=== PATIENT | female | born 1940 | race Hispanic/Latino ===

== ENCOUNTER → 2018-11-20 | Outpatient (CLI) | payer MEDICARE ==
--- NOTE | 2018-11-20 12:40 | Diagnostic Imaging Report ---
Exam: KUB Clinical history: Renal stone Findings: A right internal ureteral stent is visualized. There is no evidence of radiopaque stones along the course of the bilateral renal collecting systems. A 1.1 cm calcific density structures seen overlying the right upper quadrant which may represent cholelithiasis. There is nonobstructive bowel gas pattern with retained feces throughout the colon. The regional osseous structures are unremarkable. Impression: 1. Right internal ureteral stent in the expected location. No radiographic evidence of nephrolithiasis. Signed by: Dr. Fernando Ramirez MD on 11/20/2018 12:37 PM
== END ==
LOC: RAD 09:58
PROVIDERS: ATTEND Urology
DX: N20.0 Calculus of kidney (principal)
CPT/HCPCS: 74018

== ENCOUNTER → 2018-12-10 | Day surgery (SDC) | payer MEDICARE, OTHER ==
[~2018-12-10] MED LIST: B&O 60MG R/S 60 MG SUPP PR ONE; CEFAZOLIN SOD 1 GM/NS 50ML 50 ML IV ONE; DEXAMETHASONE SOD PHOS INJ 4 MG/ML VIAL ONE; FENTANYL CITRATE/PF 100MCG/2 ML INJ ONE; IOPAMIDOL 300MG/ML 50ML INFUS..BTL IV ONE; LIDOCAINE HCL 2% LOCAL INJ 5 ML SDV VIAL INJ ONE; MIDAZOLAM HCL 2 MG/2 ML VIAL ONE; ONDANSETRON HCL INJ 2MG/ML 2ML 2 MG/ML VIAL ONE; PROPOFOL IV EMULSION 10 MG/ML 20 ML VIAL ONE; SEVOFLURANE INHAL SOLN 250 ML PEN BTL ONE; TYLENOL # 31 EA
--- OUTSIDE RECORDS SUMMARY | 2018-12-10 09:18 | XMS REPORT ---
Author Author [facility] Organization [facility] Address Unknown Phone Unavailable Care Team Providers Care Tap Dancer Name Role Phone BRIAN LANZA Unavailable Unavailable Payers Payer Name Policy Type Policy Number Effective Date Expiration Date Problems This patient has no known problems. Allergies, Adverse Reactions, Alerts Allergy Name Allergy Type Status Severity Reaction(s) Onset Date Inactive Date Treating Clinician Comments No Known Allergies DA Active U 2011-10-09 00:00:00 Medications This patient has no known medications. Results Test Description Test Time Test Comments Text Results Atomic Results Result Comments [address] ([place]) 2018-11-20 12:32:00 [facility] [address] [place], [place] [address] Patient Name: KATHERINE JACKSON MR #: [id number] : 1940 Age/Sex: 78/F Req #: [id number] Adm Physician: Ordered by: BRIAN LANZA MD Report #: [id number] Location: [facility] Room/Bed: Procedure: [id number] DX/ABDOMEN-1VIEW (KUB) Exam Date: 11/20/18 Exam Time: 1015 REPORT STATUS: Signed Exam: KUB Clinical history: Renal stone Findings: A right internal ureteral stent is visualized. There is no evidence of radiopaque stones along the course of the bilateral renal collecting systems. A 1.1 cm calcific density structures seen overlying the right upper quadrant which may represent cholelithiasis. There is nonobstructive bowel gas pattern with retained feces throughout the colon. The regional osseous structures are unremarkable. Impression: 1. Right internal ureteral stent in the expected location. No radiographic evidence of nephrolithiasis. Signed by: Dr. Fernando Ramirez MD on 11/20/2018 12:37 PM Dictated By: ABIGAIL RAMIREZ MD 1237 Transcribed By: LOBO on 11/20/18 1237 COPY TO: BRIAN LANZA MD ABDOMEN 2018-10-07 14:52:00 RUN DATE: 10/07/18 [facility] PAGE 1 RUN TIME: 1452 Specimen Inquiry RUN USER: INTERFACE PATIENT: KATHERINE JACKSON LOC: [place] U #: [id number] AGE/SX: 78/F ROOM: [facility] RE10/02/18[facility] DR: Ellen Rodriguez MD : 38 BED: A DIS: STATUS: ADM IN TLOC: SPEC #: [id number] RECD: 10/06/18 STATUS: DEDRA RE #: [id number] ASIA: 10/06/18 [facility] DR: Ariel Garcia MD ENTERED: 10/06/18 SP TYPE: ABD OTHR DR: Livia Sullivan MD, Louis MD [place],Rogelio Marcus,Ariel Willams MD, MDORDERED: GROSS COPIES TO: Livia Sullivan MD [address] [facility] [place], [place] [id number] Nestor Rucker MD [address] [place] [address] Rogelio Lanza MD [address] [place] [address] Janett Marcus MD [address] [place] [address] Ariel Garcia MD [address] [place] [address] PROCEDURES: GROSS (10/07/18033) TISSUES: ABDOMINAL WALL, NOS - MASS CLINICAL HISTORY COLLECTION DATE: ABDOMINAL WALL MASS CONTINUED ON NEXT PAGE RUN DATE: 10/07/18 [facility] PAGE 2 RUN TIME: 1452 Specimen Inquiry RUN USER: INTERFACE SPEC #: [id number] PATIENT: MANUELKATHERINE #[id number] (Continued) FINAL DIAGNOSIS Abdominal wall mass, excision: 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 It is inked and serially sectioned to reveal guevara-yellow white, lobulated soft and necrotic cut surface. [employer]ing [employer] sections are submitted as (1A-1B). GROSS PERFORMED AT [facility] [address] [place] [address] [phone])[phone] MICROSCOPIC The sections demonstrate an adenocarcinoma composed of cribriforming glands with luminal necrosis. The tumor is present within adipose tissue and extends to inked margins. All of the stains, including any controls performed, stain appropriately. MICROSCOPIC PERFORMED AT [facility] [address] [place] [phone] PERFORM[address] SITE Diagnosis performed at: [facility] [address] [place] [address] CONTINUED ON NEXT PAGE RUN DATE: 10/07/18 [place] - Lab PAGE 3 RUN TIME: 1451 Specimen Inquiry RUN USER: INTERFACE SPEC #: [id number] PATIENT: KATHERINE JACKSON #[id number] (Continued) Signed SIGNATURE ON FILE Carlie Garcia MD 10/07/18 0622 END OF REPORT COMPREHENSIVE METABOLIC PANEL 2018-10-07 06:34:00 SODIUM (test code=NA) 140 mmol/L 136-145 POTASSIUM (test code=K) 3.7 mmol/L 3.5-5.1 CHLORIDE (test code=CL) 108.0 mmol/L 98-107 CARBON DIOXIDE (test code=CO2) 27.0 mmol/L 21-32 ANION GAP (test code=GAP) 8.7 10-20 GLUCOSE (test code=GLU) 97 mg/dL 74-106 BLOOD UREA NITROGEN (test code=BUN) 14 mg/dL 7-18 GLOMERULAR FILTRATION RATE (test code=GFR) > 60 mL/min >=60 Estimated GFR by using Modified MDRD formula.Chronic kidney disease is defined as either kidney damageor GFR <60 mL/min/1.73 m2 for >3 months. CREATININE (test code=CREAT) 0.60 mg/dL 0.55-1.02 Note change in reference range due to change in reagent. BUN/CREATININE RATIO (test code=BUN/CREA) 25.0 10-20 TOTAL PROTEIN (test code=PROT) 6.7 gram/dL 6.4-8.2 ALBUMIN (test code=ALB) 3.1 g/dL 3.4-5.0 GLOBULIN (test code=GLOB) 3.6 gram/dL 2.7-4.2 ALBUMIN/GLOBULIN RATIO (test code=A/G) 0.9 0.75-1.50 CALCIUM (test code=CA) 9.0 mg/dL 8.5-10.1 BILIRUBIN TOTAL (test code=BILT) 0.30 mg/dL 0.0-1.0 SGOT/AST (test code=AST) 10 IUnit/L 15-37 SGPT/ALT (test code=ALT) 11 IUnit/L 12-78 ALKALINE PHOSPHATASE TOTAL (test code=ALKP) 84 IUnit/L 45-117 Note change in reference range due to change in reagent. COMPREHENSIVE METABOLIC [id number] 06:29:00* Test Item Value Reference Range Comments SODIUM (test code=NA) 140 mmol/L 136-145 POTASSIUM (test code=K) 3.7 mmol/L 3.5-5.1 CHLORIDE (test code=CL) 108.0 mmol/L 98-107 CARBON DIOXIDE (test code=CO2) mmol/L 21-32 ANION GAP (test code=GAP) 10-20 GLUCOSE (test code=GLU) mg/dL 74-106 BLOOD UREA NITROGEN (test code=BUN) mg/dL 7-18 GLOMERULAR FILTRATION RATE (test code=GFR) mL/min >=60 CREATININE (test code=CREAT) mg/dL 0.55-1.02 BUN/CREATININE RATIO (test code=BUN/CREA) 10-20 TOTAL PROTEIN (test code=PROT) gram/dL 6.4-8.2 ALBUMIN (test code=ALB) g/dL 3.4-5.0 GLOBULIN (test code=GLOB) gram/dL 2.7-4.2 ALBUMIN/GLOBULIN RATIO (test code=A/G) 0.75-1.50 CALCIUM (test code=CA) mg/dL 8.5-10.1 BILIRUBIN TOTAL (test code=BILT) mg/dL 0.0-1.0 SGOT/AST (test code=AST) IUnit/L 15-37 SGPT/ALT (test code=ALT) IUnit/L 12-78 ALKALINE PHOSPHATASE TOTAL (test code=ALKP) IUnit/L 45-117 CBC W/AUTO [id number] 06:17:00* Test Item Value Reference Range Comments WHITE BLOOD CELL (test code=WBC) 10.1 K/mm3 4.5-12.5 RED BLOOD CELL (test code=RBC) 3.76 mill/mm3 3.7-5.2 HEMOGLOBIN (test code=HGB) 9.8 gram/dL 11.5-15.5 HEMATOCRIT (test code=HCT) 31.5 % 36.0-46.0 MEAN CELL VOLUME (test code=MCV) 83.8 fL 80-98 MEAN CELL HGB (test code=MCH) 26.1 picogram 27.0-33.0 MEAN CELL HGB CONCETRATION (test code=MCHC) 31.1 gram/dL 33.0-36.0 RED CELL DISTRIBUTION WIDTH (test code=RDW) 13.9 % 11.6-16.2 RED CELL DISTRIBUTION WIDTH SD (test code=RDW-SD) 42.5 fL 37.0-51.0 PLATELET COUNT (test code=PLT) 318 K/mm3 150-450 MEAN PLATELET VOLUME (test code=MPV) 9.5 fL 6.7-11.0 NEUTROPHIL % (test code=NT%) 74.0 % 39.0-69.0 IMMATURE GRANULOCYTE % (test code=IG%) 0.5 % 0.0-5.0 LYMPHOCYTE % (test code=LY%) 16.4 % 25.0-55.0 MONOCYTE % (test code=MO%) 7.7 % 0.0-10.0 EOSINOPHIL % (test code=EO%) 1.0 % 0.0-5.0 BASOPHIL % (test code=BA%) 0.4 % 0.0-1.0 NUCLEATED RBC % (test code=NRBC%) 0.0 % 0-0 NEUTROPHIL # (test code=NT#) 7.44 K/mm3 1.8-7.7 IMMATURE GRANULOCYTE # (test code=IG#) 0.05 x10 3/uL 0-0.03 LYMPHOCYTE # (test code=LY#) 1.65 K/mm3 1.0-5.0 MONOCYTE # (test code=MO#) 0.77 K/mm3 0-0.8 EOSINOPHIL # (test code=EO#) 0.10 K/mm3 0.0-0.5 BASOPHIL # (test code=BA#) 0.04 K/mm3 0.0-0.2 NUCLEATED RBC # (test code=NRBC#) 0.00 K/mm3 0.0-0.1 MANUAL DIFF REQUIRED (test code=MDIFF) NO COMPREHENSIVE METABOLIC [id number] 05:15:00* Test Item Value Reference Range Comments SODIUM (test code=NA) 141 mmol/L 136-145 POTASSIUM (test code=K) 4.1 mmol/L 3.5-5.1 CHLORIDE (test code=CL) 108.0 mmol/L 98-107 CARBON DIOXIDE (test code=CO2) 29.0 mmol/L 21-32 ANION GAP (test code=GAP) 8.1 10-20 GLUCOSE (test code=GLU) 96 mg/dL 74-106 BLOOD UREA NITROGEN (test code=BUN) 10 mg/dL 7-18 GLOMERULAR FILTRATION RATE (test code=GFR) > 60 mL/min >=60 Estimated GFR by using Modified MDRD formula.Chronic kidney disease is defined as either kidney damageor GFR <60 mL/min/1.73 m2 for >3 months. CREATININE (test code=CREAT) 0.50 mg/dL 0.55-1.02 Note change in reference range due to change in reagent. BUN/CREATININE RATIO (test code=BUN/CREA) 20.0 10-20 TOTAL PROTEIN (test code=PROT) 6.5 gram/dL 6.4-8.2 ALBUMIN (test code=ALB) 2.8 g/dL 3.4-5.0 GLOBULIN (test code=GLOB) 3.7 gram/dL 2.7-4.2 ALBUMIN/GLOBULIN RATIO (test code=A/G) 0.8 0.75-1.50 CALCIUM (test code=CA) 8.8 mg/dL 8.5-10.1 BILIRUBIN TOTAL (test code=BILT) 0.50 mg/dL 0.0-1.0 SGOT/AST (test code=AST) 20 IUnit/L 15-37 SGPT/ALT (test code=ALT) 9 IUnit/L 12-78 ALKALINE PHOSPHATASE TOTAL (test code=ALKP) 90 IUnit/L 45-117 Note change in reference range due to change in reagent. COMPREHENSIVE METABOLIC [id number] 05:00:00* Test Item Value Reference Range Comments SODIUM (test code=NA) 141 mmol/L 136-145 POTASSIUM (test code=K) 4.1 mmol/L 3.5-5.1 CHLORIDE (test code=CL) 108.0 mmol/L 98-107 CARBON DIOXIDE (test code=CO2) mmol/L 21-32 ANION GAP (test code=GAP) 10-20 GLUCOSE (test code=GLU) mg/dL 74-106 BLOOD UREA NITROGEN (test code=BUN) mg/dL 7-18 GLOMERULAR FILTRATION RATE (test code=GFR) mL/min >=60 CREATININE (test code=CREAT) mg/dL 0.55-1.02 BUN/CREATININE RATIO (test code=BUN/CREA) 10-20 TOTAL PROTEIN (test code=PROT) gram/dL 6.4-8.2 ALBUMIN (test code=ALB) g/dL 3.4-5.0 GLOBULIN (test code=GLOB) gram/dL 2.7-4.2 ALBUMIN/GLOBULIN RATIO (test code=A/G) 0.75-1.50 CALCIUM (test code=CA) mg/dL 8.5-10.1 BILIRUBIN TOTAL (test code=BILT) mg/dL 0.0-1.0 SGOT/AST (test code=AST) IUnit/L 15-37 SGPT/ALT (test code=ALT) IUnit/L 12-78 ALKALINE PHOSPHATASE TOTAL (test code=ALKP) IUnit/L 45-117 CBC W/AUTO [id number] 04:45:00* Test Item Value Reference Range Comments WHITE BLOOD CELL (test code=WBC) 7.1 K/mm3 4.5-12.5 RED BLOOD CELL (test code=RBC) 3.68 mill/mm3 3.7-5.2 HEMOGLOBIN (test code=HGB) 9.6 gram/dL 11.5-15.5 HEMATOCRIT (test code=HCT) 31.0 % 36.0-46.0 MEAN CELL VOLUME (test code=MCV) 84.2 fL 80-98 MEAN CELL HGB (test code=MCH) 26.1 picogram 27.0-33.0 MEAN CELL HGB CONCETRATION (test code=MCHC) 31.0 gram/dL 33.0-36.0 RED CELL DISTRIBUTION WIDTH (test code=RDW) 13.9 % 11.6-16.2 RED CELL DISTRIBUTION WIDTH SD (test code=RDW-SD) 42.9 fL 37.0-51.0 PLATELET COUNT (test code=PLT) 277 K/mm3 150-450 MEAN PLATELET VOLUME (test code=MPV) 9.1 fL 6.7-11.0 NEUTROPHIL % (test code=NT%) 65.6 % 39.0-69.0 IMMATURE GRANULOCYTE % (test code=IG%) 0.4 % 0.0-5.0 LYMPHOCYTE % (test code=LY%) 19.0 % 25.0-55.0 MONOCYTE % (test code=MO%) 10.1 % 0.0-10.0 EOSINOPHIL % (test code=EO%) 4.3 % 0.0-5.0 BASOPHIL % (test code=BA%) 0.6 % 0.0-1.0 NUCLEATED RBC % (test code=NRBC%) 0.0 % 0-0 NEUTROPHIL # (test code=NT#) 4.63 K/mm3 1.8-7.7 IMMATURE GRANULOCYTE # (test code=IG#) 0.03 x10 3/uL 0-0.03 LYMPHOCYTE # (test code=LY#) 1.34 K/mm3 1.0-5.0 MONOCYTE # (test code=MO#) 0.71 K/mm3 0-0.8 EOSINOPHIL # (test code=EO#) 0.30 K/mm3 0.0-0.5 BASOPHIL # (test code=BA#) 0.04 K/mm3 0.0-0.2 NUCLEATED RBC # (test code=NRBC#) 0.00 K/mm3 0.0-0.1 MANUAL DIFF REQUIRED (test code=MDIFF) NO - XR ABDOMEN AP 1 [id number] 08:32:00 FAX: Rogelio Bianchi MD [phone] [place]: B St: [facility] FAX: Ellen Rodriguez MD [phone] FAX: Janett Chen MD [phone] Name: KATHERINE JACKSON [facility] : 1940 Age/S: 78/F [address] Unit #: [id number] Loc: V.3025 [place] [address] Phys: Rogelio Lanza MD Acct: [id number] Dis Date: Status: ADM IN ONE #: [phone] Exam Date: 10/04/2018 0803 FAX #: [phone] Reason: EVALUATE FOR ENCRUSTATION ON THE STENT. EXAMS: CPT CODE: [id number] XR ABDOMEN AP 1 V 42571 HISTORY: Encru stations of the stent. COMPARISON: October 02, 2018. Castillo rgical clips and sutures in the left upper and right lower quadrant. Righ t double-J stent is barely visible on this exam. This stent is not clearl y visible on the previous exam. No encrustations noted along the stent. Phleboliths in the pelvis. Constipation is severe. No bowel obstruction. IMPRESSION: Right double-J stent is barely vi sible. No encrustations along the stent. No pathologic calcifications. Phleboliths. Severe constipation without bowel obstruction. at 0832 Reported and signed by: Alin Pope M.D. CC: Rogelio Lanza MD; Ellen Rodriguez MD; Janett Marcus MD Technologist: Benny Kim RT(R) Trnscrd Date/Time/By: 10/04/2018 (0832) : By: [email or web address] Orig Print D/T: S: 10/04/2018 (0835) PAGE 1 Signed Report COMPREHENSIVE METABOLIC [id number] 05:43:00* Test Item Value Reference Range Comments SODIUM (test code=NA) 141 mmol/L 136-145 POTASSIUM (test code=K) 4.0 mmol/L 3.5-5.1 CHLORIDE (test code=CL) 108.0 mmol/L 98-107 CARBON DIOXIDE (test code=CO2) 27.0 mmol/L 21-32 ANION GAP (test code=GAP) 10.0 10-20 GLUCOSE (test code=GLU) 103 mg/dL 74-106 BLOOD UREA NITROGEN (test code=BUN) 14 mg/dL 7-18 GLOMERULAR FILTRATION RATE (test code=GFR) > 60 mL/min >=60 Estimated GFR by using Modified MDRD formula.Chronic kidney disease is defined as either kidney damageor GFR <60 mL/min/1.73 m2 for >3 months. CREATININE (test code=CREAT) 0.50 mg/dL 0.55-1.02 Note change in reference range due to change in reagent. BUN/CREATININE RATIO (test code=BUN/CREA) 27.6 10-20 TOTAL PROTEIN (test code=PROT) 6.5 gram/dL 6.4-8.2 ALBUMIN (test code=ALB) 2.9 g/dL 3.4-5.0 GLOBULIN (test code=GLOB) 3.6 gram/dL 2.7-4.2 ALBUMIN/GLOBULIN RATIO (test code=A/G) 0.8 0.75-1.50 CALCIUM (test code=CA) 9.0 mg/dL 8.5-10.1 BILIRUBIN TOTAL (test code=BILT) 0.30 mg/dL 0.0-1.0 SGOT/AST (test code=AST) 17 IUnit/L 15-37 SGPT/ALT (test code=ALT) 10 IUnit/L 12-78 ALKALINE PHOSPHATASE TOTAL (test code=ALKP) 85 IUnit/L 45-117 Note change in reference range due to change in reagent. COMPREHENSIVE METABOLIC [id number] 05:29:00* Test Item Value Reference Range Comments SODIUM (test code=NA) 141 mmol/L 136-145 POTASSIUM (test code=K) 4.0 mmol/L 3.5-5.1 CHLORIDE (test code=CL) 108.0 mmol/L 98-107 CARBON DIOXIDE (test code=CO2) mmol/L 21-32 ANION GAP (test code=GAP) 10-20 GLUCOSE (test code=GLU) mg/dL 74-106 BLOOD UREA NITROGEN (test code=BUN) mg/dL 7-18 GLOMERULAR FILTRATION RATE (test code=GFR) mL/min >=60 CREATININE (test code=CREAT) mg/dL 0.55-1.02 BUN/CREATININE RATIO (test code=BUN/CREA) 10-20 TOTAL PROTEIN (test code=PROT) gram/dL 6.4-8.2 ALBUMIN (test code=ALB) g/dL 3.4-5.0 GLOBULIN (test code=GLOB) gram/dL 2.7-4.2 ALBUMIN/GLOBULIN RATIO (test code=A/G) 0.75-1.50 CALCIUM (test code=CA) mg/dL 8.5-10.1 BILIRUBIN TOTAL (test code=BILT) mg/dL 0.0-1.0 SGOT/AST (test code=AST) IUnit/L 15-37 SGPT/ALT (test code=ALT) IUnit/L 12-78 ALKALINE PHOSPHATASE TOTAL (test code=ALKP) IUnit/L 45-117 CBC W/AUTO [id number] 05:15:00* Test Item Value Reference Range Comments WHITE BLOOD CELL (test code=WBC) 7.2 K/mm3 4.5-12.5 RED BLOOD CELL (test code=RBC) 3.71 mill/mm3 3.7-5.2 HEMOGLOBIN (test code=HGB) 9.9 gram/dL 11.5-15.5 HEMATOCRIT (test code=HCT) 31.8 % 36.0-46.0 MEAN CELL VOLUME (test code=MCV) 85.7 fL 80-98 MEAN CELL HGB (test code=MCH) 26.7 picogram 27.0-33.0 MEAN CELL HGB CONCETRATION (test code=MCHC) 31.1 gram/dL 33.0-36.0 RED CELL DISTRIBUTION WIDTH (test code=RDW) 13.9 % 11.6-16.2 RED CELL DISTRIBUTION WIDTH SD (test code=RDW-SD) 43.0 fL 37.0-51.0 PLATELET COUNT (test code=PLT) 284 K/mm3 150-450 MEAN PLATELET VOLUME (test code=MPV) 9.4 fL 6.7-11.0 NEUTROPHIL % (test code=NT%) 65.3 % 39.0-69.0 IMMATURE GRANULOCYTE % (test code=IG%) 0.4 % 0.0-5.0 LYMPHOCYTE % (test code=LY%) 20.6 % 25.0-55.0 MONOCYTE % (test code=MO%) 8.3 % 0.0-10.0 EOSINOPHIL % (test code=EO%) 4.7 % 0.0-5.0 BASOPHIL % (test code=BA%) 0.7 % 0.0-1.0 NUCLEATED RBC % (test code=NRBC%) 0.0 % 0-0 NEUTROPHIL # (test code=NT#) 4.69 K/mm3 1.8-7.7 IMMATURE GRANULOCYTE # (test code=IG#) 0.03 x10 3/uL 0-0.03 LYMPHOCYTE # (test code=LY#) 1.48 K/mm3 1.0-5.0 MONOCYTE # (test code=MO#) 0.60 K/mm3 0-0.8 EOSINOPHIL # (test code=EO#) 0.34 K/mm3 0.0-0.5 BASOPHIL # (test code=BA#) 0.05 K/mm3 0.0-0.2 NUCLEATED RBC # (test code=NRBC#) 0.00 K/mm3 0.0-0.1 MANUAL DIFF REQUIRED (test code=MDIFF) NO - XR ABDOMEN AP 1 [id number] 13:08:00 FAX: Brian Bianchi MD [phone] [place]: St: [facility] FAX: Ellen Rodriguez MD [phone] FAX: Janett Chen MD [phone] Name: KATHERINE JACKSON [facility] : 1940 Age/S: 78/F [address] Unit #: [id number] Loc: V.30[address] [place] [address] Phys: Brian Lanza MD Acct: [id number] Dis Date: Status: ADM IN ONE #: [phone] Exam Date: 10/02/2018 1240 FAX #: [phone] Reason: POSSIBLE STENT DISLODGEMENT EXAMS: CPT CODE: [id number] XR ABDOMEN AP 1 V 28564 HISTORY: Possi ble stent dislodgment. COMPARISON: CT scan from previous day. Double-J stent seen previously is no longer visible on the right side. Surgical sutures in the right lower quadrant. No bowel obstruction. Constipation. IMPRESSION: The double-J stent seen on the CT scan within the right collecting system is no longer seen . No pathologic calcifications. Phleboliths. at 1308 Reported and s igned by: Alin Pope M.D. CC: Brian Lanza MD; Ellen Blas MD; Janett Marcus MD Technologist: AMANDO VITAL, RT(R); Alis Ramsay(R) Trnscrd Date/Time/By: 10/02/2018 (5452) : By: [email or web address] Orig Print D/T: S: 10/02/2018 (8529) PAGE 1 Signed Report FE W/TOTAL IRON BINDING CAP.2018-10-02 10:41:00* Test Item Value Reference Range Comments SERUM IRON (test code=IRON) 34 ug/dL 50-175 TOTAL IRON BINDING CAPACITY (test code=TIBC) 200 mcg/dL 250-450 IRON SATURATION (test code=FESAT) 17.00 % 13-45 VITAMIN [id number] 10:41:00* Test Item Value Reference Range Comments VITAMIN B12 (test code=VITB12) 183 pg/mL 193-986 FOLIC [id number] 10:41:00* Test Item Value Reference Range Comments FOLIC ACID (test code=FOL) 19.7 ng/mL 3.10-17.50 [id number] 10:41:00* Test Item Value Reference Range Comments FERRITIN (test code=MIRNA) 9 ng/mL 8-388 CBC W/AUTO [id number] 05:52:00* Test Item Value Reference Range Comments WHITE BLOOD CELL (test code=WBC) 6.4 K/mm3 4.5-12.5 RED BLOOD CELL (test code=RBC) 3.54 mill/mm3 3.7-5.2 HEMOGLOBIN (test code=HGB) 9.3 gram/dL 11.5-15.5 HEMATOCRIT (test code=HCT) 30.1 % 36.0-46.0 MEAN CELL VOLUME (test code=MCV) 85.0 fL 80-98 MEAN CELL HGB (test code=MCH) 26.3 picogram 27.0-33.0 MEAN CELL HGB CONCETRATION (test code=MCHC) 30.9 gram/dL 33.0-36.0 RED CELL DISTRIBUTION WIDTH (test code=RDW) 13.7 % 11.6-16.2 RED CELL DISTRIBUTION WIDTH SD (test code=RDW-SD) 42.5 fL 37.0-51.0 PLATELET COUNT (test code=PLT) 291 K/mm3 150-450 MEAN PLATELET VOLUME (test code=MPV) 9.3 fL 6.7-11.0 NEUTROPHIL % (test code=NT%) 66.4 % 39.0-69.0 IMMATURE GRANULOCYTE % (test code=IG%) 0.3 % 0.0-5.0 LYMPHOCYTE % (test code=LY%) 18.9 % 25.0-55.0 MONOCYTE % (test code=MO%) 9.4 % 0.0-10.0 EOSINOPHIL % (test code=EO%) 4.5 % 0.0-5.0 BASOPHIL % (test code=BA%) 0.5 % 0.0-1.0 NUCLEATED RBC % (test code=NRBC%) 0.0 % 0-0 NEUTROPHIL # (test code=NT#) 4.25 K/mm3 1.8-7.7 IMMATURE GRANULOCYTE # (test code=IG#) 0.02 x10 3/uL 0-0.03 LYMPHOCYTE # (test code=LY#) 1.21 K/mm3 1.0-5.0 MONOCYTE # (test code=MO#) 0.60 K/mm3 0-0.8 EOSINOPHIL # (test code=EO#) 0.29 K/mm3 0.0-0.5 BASOPHIL # (test code=BA#) 0.03 K/mm3 0.0-0.2 NUCLEATED RBC # (test code=NRBC#) 0.00 K/mm3 0.0-0.1 - CT ABD PELVIS W WO [id number] 11:37:00 Name: KATHERINE JACKSON [facility] : 1940 Age/S: 78 / F [address] [facility] Unit #: [id number] Loc: [place] [address] Phys: Varsha Kuhn Acct: [id number] Dis Date: Status: ADM IN PHONE #: [phone] Exam Date: 10/01/2018 1030 FAX #: [phone] Reason: Metastatic disease EXAMS: CPT CODE: [id number] CT ABD PELVIS W WO CONT [id number] HISTORY: Metastatic colon cancer staging. COMPARISON: PET/CT scan from April 20, 2018. CT of chest with contrast: Automated exposure control. 100 mL of Isovue-370. Patent atherosclerotic aorta without aneurysm or dissection. Unremarkable pulmonary arteries (not performed as PE protocol). Well-opacified SVC and the neck vasculature. Port-A-Cath on the right with the tip within the SVC. Pathologic adenopathy within the pretracheal space measuring 2 cm. No other pathologic adenopathy. Esophageal wall is not thickened. Thyroid glands are unremarkable Cardiomegaly without pericardial effusion. Atherosclerotic change of the coronary arteries. Subcutaneous tissues and musculature are normal in appearance. No lytic or blastic lesions are noted within the bony skeleton. DJD. Right paravertebral lower lobe mass noted again measuring 3 cm and is smaller from 4 cm on the previous PET scan. Smaller 8.3 mm subpleural anteromedial right upper lobe lung mass from previous exam as well. No new lesions. No bronchiectasis, honeycombing or fibrosis or endobronchial lesions. Dependent changes. No acute infiltrates, effusion or congestion. IMPRESSION: Decrease size of the right lower lobe paravertebral mass from 4 cm to 3 cm and in the right upper lobe from 1. 4 cm to 8.8 mm. No new lesions. No acute infiltrates, effusion or conges tion. Pathologic 2 cm right pretracheal lymph node. CT of abdomen with contrast: The liver enhan debby homogeneously with marked intra and extrahepatic biliary ductal dila tation which is unchanged from previous exam. This likely represents seq uela of cholecystectomy. No metastatic nodule is visible. The liver is m easuring 16 cm in length. Portal vein and hepatic artery remain patent. The spleen is enhancing intravenously. The stomach is distended well PAGE 1 Signed Report ([facility]) Name: KATHERINE JACKSON [facility] : 1940 Age/S: 78 / F [address] Unit #: [id number] Loc: [place] [address] Phys: Vasrha Richardson Acct: [id number] Dis Date: Status: ADM IN PHON E #: [phone] Exam Date: 10/01/2018 1030 FAX #: Reason: Metastatic disease EXAMS : CPT CODE: [id number] CT ABD PELVIS W WO CONT [id number] <Continued> with fluid and it is unremarkable. Pancreas is demonstrating bridging is enhancement. No ductal dilatation or inflammation. Punctate calcification in the pancreatic neck. Adrenals are free from metastatic disease. Left kidney is free from hydroureteronephrosis and calyceal. Homogeneous enhancement and excretion. Worsening moderate to severe right hydroureteronephrosis with double-J stent with the tip slightly distal to the renal pelvis within the proximal ureter. Excret ion is noted. No pathologic mesenteric, retroperitonea l or retrocrural adenopathy is noted. Heavy atherosclerotic calcificatio ns of the abdominal and pelvic vasculature which remains well opacified. No bowel obstruction. Anastomotic sutures noted within the mid transverse colon and proximal right colon. Constipation. The small bowel loops are within normal limits. CT PELVIS: Pelvic bowel loops are unobstructed. Constipation is extensive. Circumferential wall thickening of the rectal wall now noted when comp ared to the previous examination when only the left lateral rectal mass was noted. The circumferential wall thickening measures up to 2 cm and i s highly consistent patient's colon cancer. Fat plane is noted within th e rectum and the bladder. Unremarkable urinary bladder with do uble-J stent on the right side in good position. Patient is post hystere ctomy. Large metastatic mass in the anterior pelvic wall which displaces the anterior pelvic wall posteriorly is measuring 7.6 cm. This measured 4 cm on the previous examination. Rest of the subcuta neous tissues and the musculature are normal in appearance. No lytic or blastic lesions are noted. IMPRESSION: Incre asing size of the metastatic mass in the anterior lower right pelvic wal l with displacement of the posterior wall measuring 7.6 cm from 4 cm. PAGE 2 Signed Report (CONT INUED) Name: KATHERINE JACKSON [facility] : 1940 Age/S: 78 / F [address] Unit #: [id number] Loc: [place] [address] Phys: Jasmyne co,Varsha ALVARADO Acct: [id number] Dis Date: Status: ADM IN [facility] NE #: [phone] Exam Date: 10/01/2018 1030 FAX #: [phone] Reason: Metastatic disease EXAM S: CPT CODE: [id number] CT ABD PELVIS W WO CONT 52822 <Continued> Circumferential wall thickening of the entire rectum measured 2 cm significantly worse from previous examination when only lateral left mass was noted. Worsening right hydroureteronephrosis with d ouble-J stent which appears slightly malpositioned with the proximal J w ithin the proximal ureter distal to the renal pelvis. Electr onically Signed by Dami Pope on 10/01/2018 at 1137 Reported and signed by: Alin Pope M.D. CC: Varsha Kuhn; Ellen Rodriguez MD; Janett Marcus MD Technologist:Eduardo Linares RT(R),(MR),(CT); CTDI: DLP: Trnscb Date/Time: 10/01/2018 (1137 ) t.SDR.TH4 Orig Print D/T: S: 10/01/2018 (6390) PAG E 3 Signed Report - CT CHEST W/[id number] 11:37:00 Name: KATHERINE JACKSON [facility] : 1940 Age/S: 78 / F [address] Unit #: [id number] Loc: [place] [address] Phys: Varsha Kuhn Acct: [id number] Dis Date: Status: ADM IN PHONE #: [phone] Exam Date: 10/01/2018 1030 FAX #: [phone] Reason: Metastatic disease EXAMS: CPT CODE: [id number] CT CHEST W/CONTRAST 13778 HISTORY: Metastatic colon cancer staging. COMPARISON: PET/CT scan from April 20, 2018. CT of chest with contrast: Automated exposure control. 100 mL of Isovue-370. Patent atherosclerotic aorta without aneurysm or dissection. Unremarkable pulmonary arteries (not performed as PE protocol). Well-opacified SVC and the neck vasculature. Port-A-Cath on the right with the tip within the SVC. Pathologic adenopathy within the pretracheal space measuring 2 cm. No other pathologic adenopathy. Esophageal wall is not thickened. Thyroid glands are unremarkable Cardiomegaly without pericardial effusion. Atherosclerotic change of the coronary arteries. Subcutaneous tissues and musculature are normal in appearance. No lytic or blastic lesions are noted within the bony skeleton. DJD. Right paravertebral lower lobe mass noted again measuring 3 cm and is smaller from 4 cm on the previous PET scan. Smaller 8.3 mm subpleural anteromedial right upper lobe lung mass from previous exam as well. No new lesions. No bronchiectasis, honeycombing or fibrosis or endobronchial lesions. Dependent changes. No acute infiltrates, effusion or congestion. IMPRESSION: Decrease size of the right lower lobe paravertebral mass from 4 cm to 3 cm and in the right upper lobe from 1. 4 cm to 8.8 mm. No new lesions. No acute infiltrates, effusion or conges tion. Pathologic 2 cm right pretracheal lymph node. CT of abdomen with contrast: The liver enhan debby homogeneously with marked intra and extrahepatic biliary ductal dila tation which is unchanged from previous exam. This likely represents seq uela of cholecystectomy. No metastatic nodule is visible. The liver is m easuring 16 cm in length. Portal vein and hepatic artery remain patent. The spleen is enhancing intravenously. The stomach is distended well PAGE 1 Signed Report (ROYAL NUEARNEST) Name: KATHERINE JACKSON [facility] : 1940 Age/S: 78 / F [address] Unit #: [id number] Loc: [place], [place] [address] Phys: Varsha Richardson Acct: [id number] Dis Date: Status: ADM IN PHON E #: [phone] Exam Date: 10/01/2018 1030 FAX #: Reason: Metastatic disease EXAMS : CPT CODE: [id number] CT CHES T W/CONTRAST 64627 <Continued> with fluid and it is unremarkable. Pancreas is demonstrating bridging is enhancement. No ductal dilatation or inflammation. Punctate calcification in the pancreatic neck. Adrenals are free from metastatic disease. Left kidney is free from hydroureteronephrosis and calyceal. Homogeneous enhancement and excretion. Worsening moderate to severe right hydroureteronephrosis with double-J stent with the tip slightly distal to the renal pelvis within the proximal ureter. Excret ion is noted. No pathologic mesenteric, retroperitonea l or retrocrural adenopathy is noted. Heavy atherosclerotic calcificatio ns of the abdominal and pelvic vasculature which remains well opacified. No bowel obstruction. Anastomotic sutures noted within the mid transverse colon and proximal right colon. Constipation. The small bowel loops are within normal limits. CT PELVIS: Pelvic bowel loops are unobstructed. Constipation is extensive. Circumferential wall thickening of the rectal wall now noted when comp ared to the previous examination when only the left lateral rectal mass was noted. The circumferential wall thickening measures up to 2 cm and i s highly consistent patient's colon cancer. Fat plane is noted within th e rectum and the bladder. Unremarkable urinary bladder with do uble-J stent on the right side in good position. Patient is post hystere ctomy. Large metastatic mass in the anterior pelvic wall which displaces the anterior pelvic wall posteriorly is measuring 7.6 cm. This measured 4 cm on the previous examination. Rest of the subcuta neous tissues and the musculature are normal in appearance. No lytic or blastic lesions are noted. IMPRESSION: Incre asing size of the metastatic mass in the anterior lower right pelvic wal l with displacement of the posterior wall measuring 7.6 cm from 4 cm. PAGE 2 Signed Report (CONT INUED) Name: KATHERINE JACKSON [facility] : 1940 Age/S: 78 / F [address] Unit #: [id number] Loc: [place] [address] Phys: Varsha Stubbs Acct: [id number] Dis Date: Status: ADM IN [facility] NE #: [phone] Exam Date: 10/01/2018 1030 FAX #: [phone] Reason: Metastatic disease EXAM S: CPT CODE: [id number] CT [facility] W/CONTRAST 26845 <Continued> Circumferential wall thickening of the entire rectum measured 2 cm significantly worse from previous examination when only lateral left mass was noted. Worsening right hydroureteronephrosis with d ouble-J stent which appears slightly malpositioned with the proximal J w ithin the proximal ureter distal to the renal pelvis. Electr onically Signed by Dami Pope on 10/01/2018 at 1137 Reported and signed by: Alin Pope M.D. CC: Varsha Kuhn; Ellen Rodriguez MD; Janett Marcus MD Technologist:Eduardo Linares RT(R),(MR),(CT); CTDI: DLP: Trnscb Date/Time: 10/01/2018 (1137 ) t.SDR.TH4 Orig Print D/T: S: 10/01/2018 (9119) PAG E 3 Signed Report URINALYSIS [id number] 11:06:00* Test Item Value Reference Range Comments UA COLOR (test code=COLU) Light-Yellow YELLOW UA APPEARANCE (test code=APPU) CLEAR CLEAR UA GLUCOSE DIPSTICK (test code=DGLUU) NEGATIVE mg/dL NEGATIVE UA BILIRUBIN DIPSTICK (test code=BILU) NEGATIVE mg/dL NEGATIVE UA KETONE DIPSTICK (test code=KETU) NEGATIVE mg/dL NEGATIVE UA SPECIFIC GRAVITY (test code=SGU) 1.013 1.001-1.035 UA BLOOD DIPSTICK (test code=LENARD) 0.03 mg/dL (Trace) mg/dL NEGATIVE UA PH DIPSTICK (test code=QUIN) 7.0 5.0-8.0 UA PROTEIN DIPSTICK (test code=PROU) NEGATIVE mg/dL NEGATIVE UA UROBILINIOGEN DIPSTICK (test code=URO) Normal mg/dL NEGATIVE UA NITRITE DIPSTICK (test code=RIVKA) NEGATIVE NEGATIVE UA LEUKOCYTE ESTERASE W REFLEX (test code=LEUUR) NEGATIVE Dick/uL NEGATIVE UA WBC (test code=WBCU) 0-5 per HPF 0-5 UA RBC (test code=RBCU) 21-50 #/HPF 0-5 UA EPITHELIAL CELLS (test code=EPIU) FEW per HPF FEW UA BACTERIA (test code=BACU) NONE SEEN per HPF NONE UA MUCUS (test code=MUCU) FEW #/LPF FEW URINALYSIS [id number] 11:05:00* Test Item Value Reference Range Comments UA COLOR (test code=COLU) Light-Yellow YELLOW UA APPEARANCE (test code=APPU) CLEAR CLEAR UA GLUCOSE DIPSTICK (test code=DGLUU) NEGATIVE mg/dL NEGATIVE UA BILIRUBIN DIPSTICK (test code=BILU) NEGATIVE mg/dL NEGATIVE UA KETONE DIPSTICK (test code=KETU) NEGATIVE mg/dL NEGATIVE UA SPECIFIC GRAVITY (test code=SGU) 1.013 1.001-1.035 UA BLOOD DIPSTICK (test code=LENARD) 0.03 mg/dL (Trace) mg/dL NEGATIVE UA PH DIPSTICK (test code=QUIN) 7.0 5.0-8.0 UA PROTEIN DIPSTICK (test code=PROU) NEGATIVE mg/dL NEGATIVE UA UROBILINIOGEN DIPSTICK (test code=URO) Normal mg/dL NEGATIVE UA NITRITE DIPSTICK (test code=RIVKA) NEGATIVE NEGATIVE UA LEUKOCYTE ESTERASE W REFLEX (test code=LEUUR) NEGATIVE Dick/uL NEGATIVE UA WBC (test code=WBCU) 0-5 per HPF 0-5 UA RBC (test code=RBCU) 21-50 #/HPF 0-5 UA EPITHELIAL CELLS (test code=EPIU) FEW per HPF FEW UA BACTERIA (test code=BACU) per HPF NONE UA MUCUS (test code=MUCU) FEW #/LPF FEW URINALYSIS [id number] 10:57:00* Test Item Value Reference Range Comments UA COLOR (test code=COLU) Light-Yellow YELLOW UA APPEARANCE (test code=APPU) CLEAR CLEAR UA GLUCOSE DIPSTICK (test code=DGLUU) NEGATIVE mg/dL NEGATIVE UA BILIRUBIN DIPSTICK (test code=BILU) NEGATIVE mg/dL NEGATIVE UA KETONE DIPSTICK (test code=KETU) NEGATIVE mg/dL NEGATIVE UA SPECIFIC GRAVITY (test code=SGU) 1.013 1.001-1.035 UA BLOOD DIPSTICK (test code=LENARD) 0.03 mg/dL (Trace) mg/dL NEGATIVE UA PH DIPSTICK (test code=QUIN) 7.0 5.0-8.0 UA PROTEIN DIPSTICK (test code=PROU) NEGATIVE mg/dL NEGATIVE UA UROBILINIOGEN DIPSTICK (test code=URO) Normal mg/dL NEGATIVE UA NITRITE DIPSTICK (test code=RIVKA) NEGATIVE NEGATIVE UA LEUKOCYTE ESTERASE W REFLEX (test code=LEUUR) NEGATIVE Dick/uL NEGATIVE UA WBC (test code=WBCU) per HPF 0-5 UA RBC (test code=RBCU) per HPF 0-5 UA EPITHELIAL CELLS (test code=EPIU) per HPF Few UA BACTERIA (test code=BACU) per HPF NONE URINALYSIS [id number] 10:57:00* Test Item Value Reference Range Comments UA COLOR (test code=COLU) Light-Yellow YELLOW UA APPEARANCE (test code=APPU) CLEAR CLEAR UA GLUCOSE DIPSTICK (test code=DGLUU) NEGATIVE mg/dL NEGATIVE UA BILIRUBIN DIPSTICK (test code=BILU) NEGATIVE mg/dL NEGATIVE UA KETONE DIPSTICK (test code=KETU) NEGATIVE mg/dL NEGATIVE UA SPECIFIC GRAVITY (test code=SGU) 1.013 1.001-1.035 UA BLOOD DIPSTICK (test code=LENARD) 0.03 mg/dL (Trace) mg/dL NEGATIVE UA PH DIPSTICK (test code=QUIN) 7.0 5.0-8.0 UA PROTEIN DIPSTICK (test code=PROU) NEGATIVE mg/dL NEGATIVE UA UROBILINIOGEN DIPSTICK (test code=URO) Normal mg/dL NEGATIVE UA NITRITE DIPSTICK (test code=RIVKA) NEGATIVE NEGATIVE UA LEUKOCYTE ESTERASE W REFLEX (test code=LEUUR) NEGATIVE Dick/uL NEGATIVE UA WBC (test code=WBCU) per HPF 0-5 UA RBC (test code=RBCU) per HPF 0-5 UA EPITHELIAL CELLS (test code=EPIU) per HPF Few UA BACTERIA (test code=BACU) per HPF NONE CBC W/AUTO [id number] 09:27:00* Test Item Value Reference Range Comments WHITE BLOOD CELL (test code=WBC) 8.6 K/mm3 4.5-12.5 RED BLOOD CELL (test code=RBC) 3.80 mill/mm3 3.7-5.2 HEMOGLOBIN (test code=HGB) 10.1 gram/dL 11.5-15.5 HEMATOCRIT (test code=HCT) 32.2 % 36.0-46.0 MEAN CELL VOLUME (test code=MCV) 84.7 fL 80-98 MEAN CELL HGB (test code=MCH) 26.6 picogram 27.0-33.0 MEAN CELL HGB CONCETRATION (test code=MCHC) 31.4 gram/dL 33.0-36.0 RED CELL DISTRIBUTION WIDTH (test code=RDW) 13.5 % 11.6-16.2 RED CELL DISTRIBUTION WIDTH SD (test code=RDW-SD) 41.8 fL 37.0-51.0 PLATELET COUNT (test code=PLT) 325 K/mm3 150-450 MEAN PLATELET VOLUME (test code=MPV) 9.3 fL 6.7-11.0 NEUTROPHIL % (test code=NT%) 77.6 % 39.0-69.0 IMMATURE GRANULOCYTE % (test code=IG%) 0.5 % 0.0-5.0 LYMPHOCYTE % (test code=LY%) 11.3 % 25.0-55.0 MONOCYTE % (test code=MO%) 7.5 % 0.0-10.0 EOSINOPHIL % (test code=EO%) 2.8 % 0.0-5.0 BASOPHIL % (test code=BA%) 0.3 % 0.0-1.0 NUCLEATED RBC % (test code=NRBC%) 0.0 % 0-0 NEUTROPHIL # (test code=NT#) 6.67 K/mm3 1.8-7.7 IMMATURE GRANULOCYTE # (test code=IG#) 0.04 x10 3/uL 0-0.03 LYMPHOCYTE # (test code=LY#) 0.97 K/mm3 1.0-5.0 MONOCYTE # (test code=MO#) 0.64 K/mm3 0-0.8 EOSINOPHIL # (test code=EO#) 0.24 K/mm3 0.0-0.5 BASOPHIL # (test code=BA#) 0.03 K/mm3 0.0-0.2 NUCLEATED RBC # (test code=NRBC#) 0.00 K/mm3 0.0-0.1 MANUAL DIFF REQUIRED (test code=MDIFF) NO COMPREHENSIVE METABOLIC [id number] 14:37:00* Test Item Value Reference Range Comments SODIUM (test code=NA) 140 mmol/L 136-145 POTASSIUM (test code=K) 3.0 mmol/L 3.5-5.1 CHLORIDE (test code=CL) 104.0 mmol/L 98-107 CARBON DIOXIDE (test code=CO2) 30.0 mmol/L 21-32 ANION GAP (test code=GAP) 9.0 10-20 GLUCOSE (test code=GLU) 136 mg/dL 74-106 BLOOD UREA NITROGEN (test code=BUN) 11 mg/dL 7-18 GLOMERULAR FILTRATION RATE (test code=GFR) > 60 mL/min >=60 Estimated GFR by using Modified MDRD formula.Chronic kidney disease is defined as either kidney damageor GFR <60 mL/min/1.73 m2 for >3 months. CREATININE (test code=CREAT) 0.70 mg/dL 0.55-1.02 Note change in reference range due to change in reagent. BUN/CREATININE RATIO (test code=BUN/CREA) 16.7 10-20 TOTAL PROTEIN (test code=PROT) 7.4 gram/dL 6.4-8.2 ALBUMIN (test code=ALB) 3.3 g/dL 3.4-5.0 GLOBULIN (test code=GLOB) 4.1 gram/dL 2.7-4.2 ALBUMIN/GLOBULIN RATIO (test code=A/G) 0.8 0.75-1.50 CALCIUM (test code=CA) 9.0 mg/dL 8.5-10.1 BILIRUBIN TOTAL (test code=BILT) 0.50 mg/dL 0.0-1.0 SGOT/AST (test code=AST) 18 IUnit/L 15-37 SGPT/ALT (test code=ALT) 12 IUnit/L 12-78 ALKALINE PHOSPHATASE TOTAL (test code=ALKP) 103 IUnit/L 45-117 Note change in reference range due to change in reagent. COMPREHENSIVE METABOLIC [id number] 14:18:00* Test Item Value Reference Range Comments SODIUM (test code=NA) 140 mmol/L 136-145 POTASSIUM (test code=K) 3.0 mmol/L 3.5-5.1 CHLORIDE (test code=CL) 104.0 mmol/L 98-107 CARBON DIOXIDE (test code=CO2) mmol/L 21-32 ANION GAP (test code=GAP) 10-20 GLUCOSE (test code=GLU) mg/dL 74-106 BLOOD UREA NITROGEN (test code=BUN) mg/dL 7-18 GLOMERULAR FILTRATION RATE (test code=GFR) mL/min >=60 CREATININE (test code=CREAT) mg/dL 0.55-1.02 BUN/CREATININE RATIO (test code=BUN/CREA) 10-20 TOTAL PROTEIN (test code=PROT) gram/dL 6.4-8.2 ALBUMIN (test code=ALB) g/dL 3.4-5.0 GLOBULIN (test code=GLOB) gram/dL 2.7-4.2 ALBUMIN/GLOBULIN RATIO (test code=A/G) 0.75-1.50 CALCIUM (test code=CA) mg/dL 8.5-10.1 BILIRUBIN TOTAL (test code=BILT) mg/dL 0.0-1.0 SGOT/AST (test code=AST) IUnit/L 15-37 SGPT/ALT (test code=ALT) IUnit/L 12-78 ALKALINE PHOSPHATASE TOTAL (test code=ALKP) IUnit/L 45-117 CBC W/AUTO [id number] 14:07:00* Test Item Value Reference Range Comments WHITE BLOOD CELL (test code=WBC) 7.3 K/mm3 4.5-12.5 RED BLOOD CELL (test code=RBC) 3.93 mill/mm3 3.7-5.2 HEMOGLOBIN (test code=HGB) 10.3 gram/dL 11.5-15.5 HEMATOCRIT (test code=HCT) 33.4 % 36.0-46.0 MEAN CELL VOLUME (test code=MCV) 85.0 fL 80-98 MEAN CELL HGB (test code=MCH) 26.2 picogram 27.0-33.0 MEAN CELL HGB CONCETRATION (test code=MCHC) 30.8 gram/dL 33.0-36.0 RED CELL DISTRIBUTION WIDTH (test code=RDW) 13.5 % 11.6-16.2 RED CELL DISTRIBUTION WIDTH SD (test code=RDW-SD) 42.1 fL 37.0-51.0 PLATELET COUNT (test code=PLT) 346 K/mm3 150-450 MEAN PLATELET VOLUME (test code=MPV) 9.3 fL 6.7-11.0 NEUTROPHIL % (test code=NT%) 78.2 % 39.0-69.0 IMMATURE GRANULOCYTE % (test code=IG%) 0.3 % 0.0-5.0 LYMPHOCYTE % (test code=LY%) 13.4 % 25.0-55.0 MONOCYTE % (test code=MO%) 5.8 % 0.0-10.0 EOSINOPHIL % (test code=EO%) 1.9 % 0.0-5.0 BASOPHIL % (test code=BA%) 0.4 % 0.0-1.0 NUCLEATED RBC % (test code=NRBC%) 0.0 % 0-0 NEUTROPHIL # (test code=NT#) 5.71 K/mm3 1.8-7.7 IMMATURE GRANULOCYTE # (test code=IG#) 0.02 x10 3/uL 0-0.03 LYMPHOCYTE # (test code=LY#) 0.98 K/mm3 1.0-5.0 MONOCYTE # (test code=MO#) 0.42 K/mm3 0-0.8 EOSINOPHIL # (test code=EO#) 0.14 K/mm3 0.0-0.5 BASOPHIL # (test code=BA#) 0.03 K/mm3 0.0-0.2 NUCLEATED RBC # (test code=NRBC#) 0.00 K/mm3 0.0-0.1 PROTHROMBIN [id number] 14:03:00* Test Item Value Reference Range Comments PROTHROMBIN TIME PATIENT (test code=PTP) 12.0 seconds 9.0-14.0 INTERNATIONAL NORMAL RATIO (test code=INR) 1.0 0.8-1.2 The therapeutic range for oral anticoagulant therapy formost indications is an international normalized ratio (INR)of between 2.0 and 3.0. The recommended therapeutic INRrange for various clinical situations is listed below: Clinical Situation INR range Pulmonary e mbolism treatment (2.0-3.0)Venous thrombosis treatmentVenous thrombosis prophylaxis (high risk surgery)Prevention of systemic embolism from: Acute myocardial infarction Valvular heart disease Atrial fibrillation Mechanical prosthetic heart valves (2.5-3.5) IS PATIENT ON ANTICOAGULANTS? N- PET/CT TUMOR SK [id number] 14:30:00 FAX: Ellen Rodriguez MD [phone] [place]: St: [facility] FAX: Janett Chen MD [phone] Name: KATHERINE JACKSON [facility] : 1940 Age/S: 77/F [address] [facility] Unit #: [id number] Loc: [place] [address] Phys: Ellen Rodriguez MD Acct: [id number] Dis Date: Status: REG CLI PHONE #: [phone] Exam Date: 04/20/2018 1130 FAX #: [phone] Reason: MALIGNANT NEOPLASM EXAMS: CPT CODE: [id number] PET/CT TUMOR SK BS MIDTH 57086 HISTORY: Malignant neoplasm. Restaging colon cancer. COMPARISON: PET/CT scan from June 06, 2017 PET/CT SCAN: 10.8 mCi of FDG administered. Images obtained from the skull base to the upper thighs 1 hour postinjection. Blood glucose pryos=270 mg/dL. HEAD AND NECK: Intense uptake within the brain parenchyma limits evaluati on. Physiologic pharyngeal uptake. CHEST: Port-A-Cath on the righ t. 2.4 cm right lower lobe paravertebral medial basal mass with SUV uptak e ranging up to 5.8 which is increased from previous examination from 2.8. No erosion or destruction of the subjacent rib. Additional lesion is in creased in size and uptake in the right upper lobe anteromedially measurin g 1.4 cm with SUV uptake ranging up to 3.6. No other lesions. No p athologic hilar, mediastinal or axillary adenopathy or uptake. No chest w all or breast uptake. ABDOMEN: No liver or adrenal metastatic focu s. Excretion from both kidneys without abnormal uptake however there is m ild bilateral hydroureteronephrosis, greater on the right which is new fro m previous exam. No splenic or pancreatic uptake. No significant uptake within the bowel. Anastomotic sutures in the right lower abdomen and left upper abdomen. No abnormal uptake PELVIS: Uptake within the mass in the left lateral rectum measuring approximately 4 cm with SUV up take ranging up to 12.3. This is unchanged. Additional metastatic nodule are noted towards the left side deep within the pelvis lateral to the left side of the rectum measured 2 cm with SUV uptake ranging up to 5. No ot her bowel uptake. Excretion into the urinary bladder. MUSCU LOSKELETAL: Subcutaneous mass seen within the anterior right pelvic wall displacing the rectus muscle posteriorly measuring 4 cm with SUV uptake ra nging up to 8.3. This is smaller with decreased uptake from previous exam from 14.3. No other metastases visible. IMPRESSION: Left lateral rectal soft tissue mass measuring approximately 4 cm is unchanged with SUV uptake ranging up to 12.3. Metastatic nodule to wards the left of the mass slightly superiorly measuring 2 cm with PAGE 1 Signed Report (CONTINUED) FAX: Ellen Rodriguez MD [phone] [place]: St: [facility] FAX: Malika Chen MD [phone] Name: KATHERINE JACKSON [facility] : 1940 Age/S: 77/F [address] Unit #: [id number] Loc: [place] [address] Phys: Ellen Rodriguez MD Acct: [id number] Dis Date: Status: REG CLI PHONE #: [phone] Exam Date: 04/20/2018 1130 FAX #: [phone] Reason: MALIGNANT NEOPLASM EXAMS: CPT CODE: [id number] PET/CT TUMOR SK MIDTH 18353 < Continued> SUV uptake ranging up to 5 is unchanged and stable. 2.4 cm mass in the right lower lobe lung mass in paravertebral location with SUV ranging up to 5.8 however the SUV is increased from 2.8. Right upper lobe anteromedially nodule is larger at 1.4 cm with SUV uptake ranging up to 3.6 which is also increased from 0.9. Soft tissue mass in the right anterior pelvic wall measuring 4 cm with SUV uptake ranging up to 8.3 is decreased in size and SUV uptake which ranged up to 14.5. Bilateral hydroureteronephrosis, greater on the right is new from previous exam. at 1430 Reported and signed by: Alin Pope M.D. CC: Ellen Rodriguez MD; Janett Marcus MD Technologist: LEEANN CLAYTON Trnscrd Date/Time/By: 04/20/2018 (4389) : By: [email or web address] Orig Print D/T: S: 04/20/2018 (2471) PAGE 2 Signed Report
[2018-12-10 10:09] LABS: BASOPHILS % 0.4 % (0.0-1.0); EOSINOPHILS # (AUTO) 0.2 (0.0-0.4); EOSINOPHILS % 2.5 % (0.0-6.0); HEMATOCRIT 29.5 % (34.2-44.1); HEMOGLOBIN 9.3 g/dL (12.0-16.0); LYMPHOCYTES # (AUTO) 1.1 (1.0-3.2); LYMPHOCYTES % 14.7 % (18.0-39.1); MEAN CORPUSCULAR HEMOGLOBIN 25.3 pg (28-32); MEAN CORPUSCULAR HGB CONC 31.5 g/dL (31-35); MEAN CORPUSCULAR VOLUME 80.2 fL (81-99); MONOCYTES # (AUTO) 0.6 (0.2-0.8); MONOCYTES % 7.8 % (4.4-11.3); NEUTROPHILS # (AUTO) 5.3 (2.1-6.9); NEUTROPHILS % 74.2 % (38.7-80.0); PLATELET COUNT 279 x10e3/uL (140-360); RED BLOOD COUNT 3.68 x10e6/uL (3.6-5.1); RED CELL DISTRIBUTION WIDTH 14.8 % (11.7-14.4)
[2018-12-10 10:37] LABS: ANION GAP 11.4 mmol/L (8-16); BLOOD UREA NITROGEN 13 mg/dL (7-26); BUN/CREATININE RATIO 20 (6-25); CALCIUM 9.4 mg/dL (8.4-10.2); CARBON DIOXIDE 27 mmol/L (22-29); CHLORIDE 105 mmol/L (98-107); CREATININE, SERUM 0.64 mg/dL (0.57-1.11); EST GLOMERULAR FILTRATION RATE > 60 ML/MIN (60-); GLUCOSE 109 mg/dL (74-118); POTASSIUM 3.4 mmol/L (3.5-5.1); SODIUM 140 mmol/L (136-145)
--- NOTE | 2018-12-10 11:00 | Diagnostic Imaging Report ---
Chest, 2 views, 12/10/2018. History: Preop, urologic surgery. Comparison: None available. Findings: The cardiomediastinal silhouette and pulmonary vasculature are within normal limits. The lungs are clear without evidence of consolidation or pleural effusion. There is eventration of the hemidiaphragms. Degenerative changes are noted in the thoracic spine. Right IJ Port-A-Cath is present. There are no acute osseous or soft tissue abnormalities. Impression: No acute cardiopulmonary abnormality. Signed by: Caleb Darling on 12/10/2018 10:57 AM
[2018-12-10 13:45] VITALS: BP 143/65
--- NOTE | 2018-12-10 23:38 | Operative Report ---
DATE OF PROCEDURE: 12/10/2018 SURGEON: Brian Lanza MD SERVICE: Urology. PREOPERATIVE DIAGNOSES: 1. History of right nephrolithiasis. 2. Right hydronephrosis. 3. Right double-J stent. 4. Microhematuria. 5. History of colon cancer. POSTOPERATIVE DIAGNOSES: 1. History of right nephrolithiasis. 2. Right hydronephrosis. 3. Right double-J stent. 4. Microhematuria. 5. History of colon cancer. OPERATIONS PERFORMED: 1. Cystoscopy and left retrograde pyelograms under fluoroscopy control. This was done with different instruments, not related to the contralateral side part of the evaluation of the microhematuria. 2. Removal of double-J stent from the right side. 3. Right retrograde pyelograms under fluoroscopic control. 4. Right ureteroscopy with fragmentation and removal of ureteral calculi. 5. Placement of double-J stent 6-German 22 cm long to the right side. 6. Interpretation of x-ray, radiologist not present. 7. Supervision of fluoroscopy, radiologist not present. TOWER HELPER: None. ANESTHESIA: General. CLINICAL INDICATION: Note, this is an 78-year-old patient, who was found to have a stone on the right side. She has a stent in place. The patient did have colon cancer, and had also local recurrence in the abdominal wall that was removed surgically at [facility]. The patient was brought for further assessment and treatment of the stones on the right side. At the same time, the left side would be assessed due to the microhematuria. DESCRIPTION OF PROCEDURE AND FINDING: After proper level of anesthesia was achieved, the patient was placed in lithotomy position, prepped and draped in the sterile fashion. Urethra inspected is unremarkable. Bladder of the neck is patent bladder mucosa is minimally irritated. There was a double-J stent protruding from the right ureteral orifice. The left ureteral orifice was normal. Open-end catheter was inserted to the left side and retrograde pyelogram demonstrated unremarkable collecting system of the ureter on the left side. Following this, the double-J stent was removed open-end catheter was kept in place. Some dilation of the upper collecting system was noticed and minimal area of irregularity in the ureter. The guidewire was kept in place and a semi-rigid ureteroscopy was done. Stones were identified, fragmented and removed with stone baskets. A wire was kept in place and a double-J stent 6-German 22 cm long was properly positioned on the right side. This was verified by x-ray and endoscopy. Following this, the bladder was irrigated. The scope was removed. The pelvic exam was done under anesthesia due to the history of the colon cancer. No masses were palpable. The patient tolerated the procedure well, and was transferred in satisfactory condition to the recovery room. MD ABIDA Marin/MODL /[id number]
== END | disposition home or self-care (01) ==
LOC: OR 09:16
PROVIDERS: ATTEND Urology
DX: N13.2 Hydronephrosis with renal and ureteral calculous obstruction (principal); K46.9 Unspecified abdominal hernia without obstruction or gangrene; Z87.891 Personal history of nicotine dependence; E78.00 Pure hypercholesterolemia, unspecified; D64.9 Anemia, unspecified; Z87.442 Personal history of urinary calculi; Z96.0 Presence of urogenital implants; R31.29 Other microscopic hematuria
CPT/HCPCS: 36415; 52332; 52352; 71046; 74420; 80048; 85025; 88300; 93005; C1758; C2617; J0690; J1100; J2001; J2250; J2405; J2704; J3010; Q9967

== ENCOUNTER → 2019-01-06 | Day surgery (SDC) | payer OTHER ==
[~2019-01-06] MED LIST changes: -B&O 60MG R/S 60 MG SUPP PR ONE; -MIDAZOLAM HCL 2 MG/2 ML VIAL ONE
[2019-01-06 15:00] VITALS: BP 140/71
--- NOTE | 2019-01-06 23:48 | Operative Report ---
DATE OF PROCEDURE: 01/06/2019 SURGEON: Brian Lanza MD SERVICE: Urology. PREOPERATIVE DIAGNOSES: 1. Right hydronephrosis. 2. Right double-J stent. 3. Suspected right ureterolithiasis. 4. Microhematuria. 5. History of colon cancer. POSTOPERATIVE DIAGNOSES: 1. Right hydronephrosis. 2. Right double-J stent. 3. Suspected right ureterolithiasis. 4. Microhematuria. 5. History of colon cancer. OPERATION PERFORMED: 1. Cystoscopy and left retrograde pyelogram under fluoroscopy control. 2. Removal of double-J stent from the right side. 3. Right retrograde pyelogram. 4. Ureteroscopy on the right side. 5. Interpretation of x-ray, radiologist not present. 6. Supervision of fluoroscopy, radiologist not present. 7. Pelvic exam under anesthesia. This was done to assess if there were any pelvic masses. ACCOUNTS RECEIVABLE SUPERVISOR: None. ANESTHESIA: General. CLINICAL INDICATION: Note, this is an 78-year-old patient, who in the past was treated for right hydronephrosis by placement of double-J stent. At that time, she underwent a surgery of abdominal recurrence in the wall of the abdomen of colon cancer. Presently, she was brought for reassessment of the right and left side. The procedure was discussed with the patient. Potential benefits and complications discussed, explained, and accepted. DESCRIPTION OF PROCEDURE AND FINDINGS: After appropriate level of anesthesia was achieved, the patient was placed in lithotomy position, prepped and draped in a sterile fashion. Urethra inspected was unremarkable. Bladder outlet was normal. Bladder mucosa was normal. Double-J stent was protruding to the right ureteral orifice. No tumor identified or stones. An open-ended catheter was inserted to the left side and retrograde pyelogram was unremarkable. Following this, the double-J stent from the right side was removed, an open-ended catheter was inserted. Retrograde pyelogram demonstrated some dilation of the ureter and upper collecting system. No definitive stones could be seen. The wire was kept in place and a flexible ureteroscopy was done. No intrinsic stone was identified along the ureter. The collecting system was somewhat dilated, however, no foreign bodies were seen. Therefore, we selected not to place a double-J stent. The ureteroscope was removed. Pelvic exam was done under anesthesia. No midline or adnexal masses were palpable. The patient tolerated the procedure well, was transferred in satisfactory condition to recovery room. She would be followed as outpatient. MD ABIDA Marin/FLAKO /[id number]
== END | disposition home or self-care (01) ==
LOC: OR 12:21
PROVIDERS: ATTEND Urology
DX: Z46.6 Encounter for fitting and adjustment of urinary device (principal); N13.30 Unspecified hydronephrosis; R31.29 Other microscopic hematuria; Z85.038 Personal history of other malignant neoplasm of large intestine; Z01.812 Encounter for preprocedural laboratory examination
CPT/HCPCS: 52310; 74420; C1758; J0690; J1100; J2001; J2405; J2704; J3010; Q9967